=== PATIENT | female | born 1940 | race African-American/Black ===

== ENCOUNTER 2016-10-20 06:51 | Day surgery (SDC) | payer OTHER ==
--- NOTE | ~2016-10-20 | EGD ---
EGD REPORT [facility] [address] [place]. [address] NAME: ISA BROWN : [birth year] STATUS : REG [facility]#: [id number] AGE: 76 ADM/REG DATE : 10/20/16 MR#: [id number] REPORT SERV DATE: 10/20/16 DICTATED BY: ANDRES LEACH DATE: 10/20/16 REPORT STATUS : Draft [facility]ANS[facility]ED [facility]: [facility] DATE: 10/20/16 Endoscopy Center Patient Name: Isa Brown Date of : 1940 Attending MD: RUBIN LEACH MD Procedure Date No Time: 10/20/2016 Procedure: Upper GI endoscopy Indications: Heme positive stool Referring MD: YASMANY GAITAN MD, ERMIAS SCHUSTER MD, Venu King Medicines: See the Anesthesia note for documentation of the administered medications Complications: No immediate complications. Estimated blood loss: None. Procedure: Pre-Anesthesia Assessment: - ASA Grade Assessment: III - A patient with severe systemic disease. - Prior to the procedure, a History and Physical was performed, and patient medications and allergies were reviewed. The patient's tolerance of previous anesthesia was also reviewed. The risks and benefits of the procedure and the sedation options and risks were discussed with the patient. All questions were answered, and informed consent was obtained. Prior Anticoagulants: The patient has taken aspirin, last dose was 1 day prior to procedure. After reviewing the risks and benefits, the patient was deemed in satisfactory condition to undergo the procedure. After obtaining informed consent, the endoscope was passed under direct vision. Throughout the procedure, the patient's blood pressure, pulse, and oxygen saturations were monitored continuously. The GIF H190 [id number] was introduced through the mouth, and advanced to the second part of duodenum. The upper GI endoscopy was accomplished without difficulty. The patient tolerated the procedure well. Findings: The examined duodenum was normal. A small hiatus hernia was present. No other significant abnormalities were identified in a careful examination of the stomach. The examined esophagus was normal. Impression: - Normal examined duodenum. - Hiatus hernia. - Normal esophagus. EGD REPORT [address] [address] NAME: ISA BROWN : [birth year] STATUS : REG [facility] PAT#: [id number] AGE: 76 ADM/REG DATE : 10/20/16 MR#: [id number] REPORT SERV DATE: 10/20/16 DICTATED BY: ANDRES LEACH DATE: 10/20/16 REPORT STATUS : Draft TRANSCRIBED BY: [employer] DATE: 10/20/16 Recommendation: - Patient has a contact number available for emergencies. The signs and symptoms of potential delayed complications were discussed with the patient. Return to normal activities tomorrow. Written discharge instructions were provided to the patient. - Regular diet. - Discharge patient to home. - Continue present medications. Procedure Code(s): --- Professional --- 89074, Esophagogastroduodenoscopy, flexible, transoral; diagnostic, including collection of specimen(s) by brushing or washing, when performed (separate procedure) Diagnosis Code(s): --- Professional --- K44.9, Diaphragmatic hernia without obstruction or gangrene R19.5, Other fecal abnormalities CPT copyright 2013 [employer]. All rights reserved. The codes documented in this report are preliminary and upon senior storage engineer review may be revised to meet current compliance requirements. RUBIN LEACH MD 10/20/2016 8:51 AM This report has been signed electronically. Number of Addenda: 0 Note Initiated On: 10/20/2016 8:43 AM Scope Withdrawal Time 0 hours 0 minutes 0 seconds [address] [place] [address]
--- NOTE | ~2016-10-20 | EGD ---
EGD REPORT [facility] [address] [place]. [address] NAME: ISA BROWN : [birth year] STATUS : REG [facility]#: [id number] AGE: 76 ADM/REG DATE : 10/20/16 MR#: [id number] REPORT SERV DATE: 10/20/16 DICTATED BY: ANDRES LEACH DATE: 10/20/16 REPORT STATUS : Draft [facility] DATE: 10/20/16 Endoscopy Center Patient Name: Isa Brown Date of : 1940 Attending MD: RUBIN LEACH MD Procedure Date No Time: 10/20/2016 Procedure: Colonoscopy Indications: Heme positive stool Referring MD: ERMIAS SCHUSTER MD, YASMANY Gallardo MD Medicines: See the Anesthesia note for documentation of the administered medications Complications: No immediate complications. Estimated blood loss: None. Procedure: Pre-Anesthesia Assessment: - ASA Grade Assessment: III - A patient with severe systemic disease. - Prior to the procedure, a History and Physical was performed, and patient medications and allergies were reviewed. The patient's tolerance of previous anesthesia was also reviewed. The risks and benefits of the procedure and the sedation options and risks were discussed with the patient. All questions were answered, and informed consent was obtained. Prior Anticoagulants: The patient has taken aspirin, last dose was 1 day prior to procedure. After reviewing the risks and benefits, the patient was deemed in satisfactory condition to undergo the procedure. After I obtained informed consent, the scope was passed under direct vision. Throughout the procedure, the patient's blood pressure, pulse, and oxygen saturations were monitored continuously. The PCF [id number] was introduced through the anus and advanced to the cecum, identified by appendiceal orifice and ileocecal valve. The ileocecal valve, appendiceal orifice, terminal ileum and rectum were photographed. Findings: The perianal and digital rectal examinations were normal. A sessile polyp was found in the cecum. The polyp was 3 mm in size. The polyp was removed with a piecemeal technique using a cold biopsy forceps. Resection and retrieval were complete. A sessile polyp was found in the proximal transverse colon. The polyp was 5 mm in size. The polyp was removed with a cold snare. Resection and retrieval were complete. Non-bleeding internal hemorrhoids were found during retroflexion and were Grade I (internal hemorrhoids that do not prolapse). EGD REPORT [address] [address] NAME: ISA BROWN : 44 STATUS : REG [facility] PAT#: [id number] AGE: 76 ADM/REG DATE : 10/20/16 MR#: [id number] REPORT SERV DATE: 10/20/16 DICTATED BY: ANDRES LEACH DATE: 10/20/16 REPORT STATUS : Draft TRANSCRIBED BY: [employer] DATE: 10/20/16 No other significant abnormalities were identified in a careful examination of the remainder of the colon. Impression: - One 3 mm polyp in the cecum. Resected and retrieved. - One 5 mm polyp in the proximal transverse colon. Resected and retrieved. - Non-bleeding internal hemorrhoids. Recommendation: - Patient has a contact number available for emergencies. The signs and symptoms of potential delayed complications were discussed with the patient. Return to normal activities tomorrow. Written discharge instructions were provided to the patient. - Regular diet. - Discharge patient to home. - Continue present medications. - Await pathology results. - Repeat colonoscopy for surveillance based on pathology results. Procedure Code(s): --- Professional --- 57504, Colonoscopy, flexible, proximal to splenic flexure; with removal of tumor(s), polyp(s), or other lesion(s) by snare technique 48536, 59, Colonoscopy, flexible, proximal to splenic flexure; with biopsy, single or multiple Diagnosis Code(s): --- Professional --- D12.3, Benign neoplasm of transverse colon D12.0, Benign neoplasm of cecum K64.0, First degree hemorrhoids R19.5, Other fecal abnormalities CPT copyright 2013 [employer]. All rights reserved. The codes documented in this report are preliminary and upon senior linux administrator review may be revised to meet current compliance requirements. RUBIN LEACH MD 10/20/2016 9:10 AM This report has been signed electronically. Number of Addenda: 0 Note Initiated On: 10/20/2016 8:39 AM Scope Withdrawal Time 0 hours 11 minutes 18 seconds EGD REPORT [facility] [address] [place]. [address] NAME: ISA BROWN : [birth year] STATUS : REG [facility]#: [id number] AGE: 76 ADM/REG DATE : 10/20/16 MR#: [id number] REPORT SERV DATE: 10/20/16 DICTATED BY: ANDRES LEACH DATE: 10/20/16 REPORT STATUS : Draft TRANSCRIBED BY: [employer] DATE: 10/20/16 [address] [place] [address]
--- NOTE | ~2016-10-20 | EGD ---
EGD REPORT [facility] [address] [place]. [address] NAME: SIA BROWN : [birth year] STATUS : REG [facility]#: [id number] AGE: 76 ADM/REG DATE : 10/20/16 MR#: [id number] REPORT SERV DATE: 10/20/16 DICTATED BY: ANDRES LEACH DATE: 10/20/16 REPORT STATUS : Draft [facility]ANSCRIBED BY: [facility] DATE: 10/20/16 Endoscopy Center Patient Name: Isa Brown Date of : 1940 Attending MD: RUBIN LEACH MD Procedure Date No Time: 10/20/2016 Procedure: Upper GI endoscopy Indications: Heme positive stool Referring MD: YASMANY GAITAN MD, ERMIAS SCHUSTER MD, KAREN Gallardo Medicines: See the Anesthesia note for documentation of the administered medications Complications: No immediate complications. Estimated blood loss: None. Procedure: Pre-Anesthesia Assessment: - ASA Grade Assessment: III - A patient with severe systemic disease. - Prior to the procedure, a History and Physical was performed, and patient medications and allergies were reviewed. The patient's tolerance of previous anesthesia was also reviewed. The risks and benefits of the procedure and the sedation options and risks were discussed with the patient. All questions were answered, and informed consent was obtained. Prior Anticoagulants: The patient has taken aspirin, last dose was 1 day prior to procedure. After reviewing the risks and benefits, the patient was deemed in satisfactory condition to undergo the procedure. After obtaining informed consent, the endoscope was passed under direct vision. Throughout the procedure, the patient's blood pressure, pulse, and oxygen saturations were monitored continuously. The GIF H190 [id number] was introduced through the mouth, and advanced to the second part of duodenum. The upper GI endoscopy was accomplished without difficulty. The patient tolerated the procedure well. Findings: The examined duodenum was normal. A small hiatus hernia was present. No other significant abnormalities were identified in a careful examination of the stomach. The examined esophagus was normal. Impression: - Normal examined duodenum. - Hiatus hernia. EGD REPORT [address] [address] NAME: ISA BROWN : 44 STATUS : REG [facility] PAT#: [id number] AGE: 76 ADM/REG DATE : 10/20/16 MR#: [id number] REPORT SERV DATE: 10/20/16 DICTATED BY: ANDRES LEACH DATE: 10/20/16 REPORT STATUS : Draft TRANSCRIBED BY: [employer] SERVICES DATE: 10/20/16 - Normal esophagus. Recommendation: - Patient has a contact number available for emergencies. The signs and symptoms of potential delayed complications were discussed with the patient. Return to normal activities tomorrow. Written discharge instructions were provided to the patient. - Regular diet. - Discharge patient to home. - Continue present medications. Procedure Code(s): --- Professional --- 43211, Esophagogastroduodenoscopy, flexible, transoral; diagnostic, including collection of specimen(s) by brushing or washing, when performed (separate procedure) Diagnosis Code(s): --- Professional --- K44.9, Diaphragmatic hernia without obstruction or gangrene R19.5, Other fecal abnormalities CPT copyright 2013 [place] [employer]. All rights reserved. The codes documented in this report are preliminary and upon intranet developer review may be revised to meet current compliance requirements. RUBIN LEACH MD 10/20/2016 8:51 AM This report has been signed electronically. Number of Addenda: 0 Note Initiated On: 10/20/2016 8:43 AM Scope Withdrawal Time 0 hours 0 minutes 0 seconds [address] [place] [address]
[~2016-10-20 06:51] MED LIST: ASAB PO; ASACOL PO; BENTYL10 PO; BRILINTA90 MG PO; CENTRUM PO; CLARIT10 PO; COZ50 PO; DIL2TAB PO; FISH OIL1200 MG PO; FLAGIV500 IV; GLUCOPHAGE1000 MG PO; GLUCPH PO; GLYXAMBI PO; HYDROCHLOROT25 MG PO; IMDUR30 PO; INVOKAMET PO; L20 PO; LEVAQUIN750 MG PO; LIBRAX PO; LIPITOR40 PO; LOP50 PO; LYRICA75 PO; METAMUCIL CAN7 OZ PO; MUCINEX1200 MG PO; MULTI-VIT HP OR; MULTIVITAMI1 PO; NEUR100 PO; NORCO1 TA2 PO; NTG150 SL; PLAVIX PO; PLEND5 PO; PRILO PO; SUCR PO; TOPXL25; TRADJENTA5 MG PO; VICOPROFEN 7.5/1 TAB PO; VICOPROFEN OR; VITAMIN B PO; ZANAFLEX2 MG PO; ZESTORETIC PO; ZOCOR20 PO
== END 2016-10-20 23:59 | disposition home or self-care (01) ==
LOC: DMU 06:51
PROVIDERS: Internal Medicine Gastroenterology
PROC: 0DJ08ZZ Inspection of Upper Intestinal Tract, Via Natural or Artificial Opening Endoscopic (ICD-10-PCS; principal; 2016-10-20 08:30)
PROC: 0DBL8ZX Excision of Transverse Colon, Via Natural or Artificial Opening Endoscopic, Diagnostic (ICD-10-PCS; 2016-10-20 08:30)
PROC: 0DBH8ZX Excision of Cecum, Via Natural or Artificial Opening Endoscopic, Diagnostic (ICD-10-PCS; 2016-10-20 08:30)
DX: D12.0 Benign neoplasm of cecum (principal); D12.3 Benign neoplasm of transverse colon; K64.0 First degree hemorrhoids; K44.9 Diaphragmatic hernia without obstruction or gangrene; I25.10 Atherosclerotic heart disease of native coronary artery without angina pectoris; I10 Essential (primary) hypertension; E11.9 Type 2 diabetes mellitus without complications; K21.9 Gastro-esophageal reflux disease without esophagitis; Z95.5 Presence of coronary angioplasty implant and graft; Z88.0 Allergy status to penicillin; Z88.5 Allergy status to narcotic agent; Z88.1 Allergy status to other antibiotic agents; Z90.49 Acquired absence of other specified parts of digestive tract; Z90.710 Acquired absence of both cervix and uterus; Z98.890 Other specified postprocedural states
CPT/HCPCS: 82962; 88305